=== PATIENT | female | born 1980 | race Two or more races ===

== ENCOUNTER 2018-06-04 00:02 | Emergency (ER) | payer MEDICAID, OTHER ==
[~2018-06-04] VITALS: Ht 162.6 cm; Wt 65.8 kg
[2018-06-04 00:18] VITALS: BP 152/91
[2018-06-04] MEDS ORDERED: ACETAMINOPHEN/CODEINE#3 (300/30mg) TAB PO ONE (02:15)
[2018-06-04] MEDS ORDERED: cefTRIAXone SOD 1,000 MG VL IM ONE (02:15)
[2018-06-04] MEDS ORDERED: methylPREDNISolone SOD SUCC 125 MG/2 ML VL IM ONE (02:15)
== END 2018-06-04 02:42 | disposition home or self-care (01) ==
LOC: ER 00:02
DX: J40 Bronchitis, not specified as acute or chronic (principal)
CPT/HCPCS: 96372; 99283; J0696; J2930